=== PATIENT | female | born 1955 | race Caucasian/White ===

== ENCOUNTER → 2018-10-29 | Outpatient (CLI) | payer OTHER ==
[~2018-10-29] MED LIST: AMLO5 PO; ASPI81CH; CETI10 PO; DIPH50 PO; HYDCHL25 PO; INS70/30I; LISI20; PRAV20 PO; SULTRIDS PO
[2018-10-30 16:06] LABS: HPV 16 Negative (Negative); HPV 18 Negative (Negative); HPV OTHER HR TYPES Negative (Negative)
== END | disposition home or self-care (01) ==
LOC: LAB SHORT 09:48 → LAB 09:48
PROVIDERS: Obstetrics & Gynecology
DX: Z01.419 Encounter for gynecological examination (general) (routine) without abnormal findings (principal)
CPT/HCPCS: 87624; G0123

== ENCOUNTER 2018-12-03 04:54 | Day surgery (SDC) | payer OTHER ==
[~2018-12-03] VITALS: Ht 152.4 cm; Wt 92.0 kg
[~2018-12-03 04:54] MED LIST changes: +B Complex #11 EACH PO; +CENTRUM SILVER1 EAC3 PO; -INS70/30I; +LO-DOSE ASPIRIN81 MG PO; +METF500C PO; +NOVOLIN 70100 UNIT/1 SC
== END 2018-12-03 09:00 | disposition home or self-care (01) ==
LOC: ORSCSDS 04:54
PROVIDERS: Ophthalmology
PROC: 08RK3JZ Replacement of Left Lens with Synthetic Substitute, Percutaneous Approach (ICD-10-PCS; principal; 2018-12-03 08:30)
DX: H25.12 Age-related nuclear cataract, left eye (principal); I10 Essential (primary) hypertension; J44.9 Chronic obstructive pulmonary disease, unspecified; E11.9 Type 2 diabetes mellitus without complications; Z87.891 Personal history of nicotine dependence; Z79.899 Other long term (current) drug therapy; E66.01 Morbid (severe) obesity due to excess calories; Z68.39 Body mass index [BMI] 39.0-39.9, adult
CPT/HCPCS: 82947; J2001; J2250; J3010; J3301; V2632